=== PATIENT | male | born 1995 | race African-American/Black ===

== ENCOUNTER 2019-07-11 22:00 | Emergency (ER) | payer SELFPAY ==
[~2019-07-11] VITALS: Ht 170.1 cm; Wt 90.7 kg
== END 2019-07-11 23:15 | disposition home or self-care (01) ==
LOC: ED 22:00
DX: M25.531 Pain in right wrist (principal); F17.200 Nicotine dependence, unspecified, uncomplicated; W18.39XA Other fall on same level, initial encounter; Y93.89 Activity, other specified; Y92.89 Other specified places as the place of occurrence of the external cause; Y99.8 Other external cause status